=== PATIENT | male | born 1930 | race Caucasian/White ===

== ENCOUNTER 2018-03-03 11:02 | Inpatient (IN) | payer MEDICARE, OTHER ==
[~2018-03-03] VITALS: Ht 172.7 cm; Wt 60.4 kg
[2018-03-03 11:31] LABS: BASOPHILS # (AUTO) 0.1 K/uL (0.0-8.0); BASOPHILS % (AUTO) 0.8 % (0.0-2.0); EOSINOPHILS # (AUTO) 0.5 K/uL (0.0-0.7); EOSINOPHILS % (AUTO) 7.4 % (0.0-7.0); HEMATOCRIT 31.3 % (36.7-47.1); LYMPHOCYTES # (AUTO) 0.9 K/uL (20.0-40.0); LYMPHOCYTES % (AUTO) 12.8 % (20.5-51.5); MEAN CORPUSCULAR HGB CONC 35 g/dL (32.5-36.3); MEAN CORPUSCULAR VOLUME 96.3 fL (73.0-96.2); MONOCYTES # (AUTO) 0.6 K/uL (2.0-10.0); MONOCYTES % (AUTO) 7.8 % (0.0-11.0); NEUTROPHILS # (AUTO) 5.1 K/uL (1.8-8.9); NEUTROPHILS % (AUTO) 71.2 % (38.5-71.5); PLATELET COUNT (AUTO) 189 K/uL (152-348); RED BLOOD CELL COUNT(AUTO) 3.25 MIL/uL (4.06-5.63); WHITE BLOOD COUNT (AUTO) 7.2 K/uL (3.6-10.2)
[2018-03-03 11:41] LABS: CARBON DIOXIDE 23 mmol/L (21-32); CHLORIDE 106 mmol/L (98-107); CREATININE 1.9 mg/dL (0.6-1.3); GLUCOSE 93 mg/dL (74-106); POTASSIUM 5.2 mmol/L (3.5-5.1); UREA NITROGEN, BLOOD 47 mg/dL (7-18)
[2018-03-03] MEDS ORDERED: ACET-2605 PO (11:48)
[2018-03-03] MEDS ORDERED: ATOR40TA PO (11:48)
[2018-03-03] MEDS ORDERED: ZINC220C8 PO (11:48)
[2018-03-03] MEDS ORDERED: MULT1TAB73 PO (11:48)
[2018-03-03] MEDS ORDERED: ASPI81TA31 PO (11:48)
[2018-03-03] MEDS ORDERED: DABI75CA3 PO (11:48)
[2018-03-03] MEDS ORDERED: LISI-603 PO (11:48)
[2018-03-03] MEDS ORDERED: AMLO10TA7 PO (11:48)
[2018-03-03] MEDS ORDERED: HYDR-4075 PO (11:48)
[2018-03-03] MEDS ORDERED: ASCO500C18 PO (11:48)
[2018-03-03] MEDS ORDERED: DOCU-141 PO (11:48)
[2018-03-03 11:54] LABS: ALANINE AMINOTRANSFERASE 25 U/L (16-63); ALKALINE PHOSPHATASE 62 U/L (50-136); ASPARTATE AMINOTRANSFERASE 25 U/L (15-37); BILIRUBIN,DIRECT 0.1 mg/dL (0.0-0.2); BILIRUBIN,TOTAL 0.6 mg/dL (0.2-1.0); TOTAL PROTEIN, SERUM 7.3 g/dL (6.4-8.2)
--- NOTE | 2018-03-03 14:50 | NUR ---
Pt trans to tele floor, NAD noted.
--- NOTE | 2018-03-03 15:00 | NUR ---
PT ARRIVED TO UNIT VIA GURNEY. PT ON THE TELE MONITOR IS SINUS RHYTHM BRADYCARDIA. PT IS AOX3, NON AMBULATORY, WEARS A DIAPER, LEFT ARM CONTRACTED AND IS EXPERIENCING WEAKNESS ON THE LEFT UPPER AND LOWER EXTREMITIES. PT SHOWS NO SIGNS OF RESPIRATORY DISTRESS AT THIS TIME. CONTINUE TO MONITOR PT.
[2018-03-03 15:20] VITALS: BP 100/60
[2018-03-03] MEDS ORDERED: DOCUSATE SODIUM 100 MG CAPSULE PO PRN (17:00)
[2018-03-03] MEDS ORDERED: ONDANSETRON 4 MG/2 ML VIAL IV PRN (17:15)
[2018-03-03] MEDS ORDERED: ACETAMINOPHEN 325 MG TABLET PO PRN (17:15)
[2018-03-03] MEDS ORDERED: TEMAZEPAM 15 MG CAPSULE PO PRN (17:15)
[2018-03-03] MEDS ORDERED: MORPHINE SULFATE 2 MG/1 ML DISP.SYRIN IV PRN (17:15)
[2018-03-03] MEDS ORDERED: MORPHINE SULFATE 4 MG/1 ML DISP.SYRIN IV PRN (17:30)
[2018-03-03] MEDS ORDERED: TEMAZEPAM 7.5 MG CAPSULE PO PRN (17:30)
[2018-03-03] MEDS ORDERED: DOCUSATE SODIUM 250 MG CAPSULE PO PRN (17:30)
--- NOTE | 2018-03-03 18:55 | NUR ---
PT CALM, RESTING IN BED, ATE ALL OF HIS DINNER. PT HAS NO DENTURES, BUT CAN EAT WITHOUT TROUBLE. PT CAN SWALLOW WITH OUT DIFFICULTY, NO SIGNS OF RESPIRATORY DISTRESS, DENIES PAIN. CONTINUE TO MONITOR PT.
--- NOTE | 2018-03-03 19:30 | NUR ---
RECEIVED PATIENT SLEEPING IN BED. IN NO ACUTE DISTRESS. HEPLOCK ON THE RIGHT FA INTACT. SAFETY MEASURES INITIATED. BED IS IN A LOW AND LOCKED POSITION. CALL LIGHT WITHIN REACH. WILL CONTINUE TO MONITOR.
--- NOTE | 2018-03-03 20:00 | NUR ---
Awake alert & oriented no SOB denies chest pain. Bilateral lower ext weakness noted. Repositioned in bed, fall precaution observed. Kept call light within reach w/ bed alarm on.
[2018-03-03 20:15] VITALS: BP 139/63
[2018-03-03] MEDS: ATORVASTATIN 40 MG TABLET PO SCH (20:28)
[2018-03-03 23:53] LABS: *BILIRUBIN,URIN NEGATIVE (NEGATIVE); *BLOOD, URINE NEGATIVE (NEGATIVE); *CLARITY,URINE CLEAR (CLEAR); *COLOR,URINE YELLOW (YELLOW); *KETONES,URINE NEGATIVE (NEGATIVE); *UROBILINOGEN,URINE 0.2 E.U./dl (NORMAL); LEUKOCYTE ESTERASE ,URINE NEGATIVE (NEGATIVE); NITRITE, URINE NEGATIVE (NEGATIVE); PH,URINE 5.5 (5.0-8.0); UGLUCOSE NEGATIVE (NEGATIVE)
--- NOTE | 2018-03-03 23:55 | NUR ---
Urine specimen sent to the lab. for UA C&S.
[2018-03-04] VITALS: BP 124/73
[2018-03-04 00:31] LABS: BACTERIA,URINE NONE SEEN /HPF (NONE SEEN); SQUAMOUS EPITHELIAL CELL,UR FEW /HPF (NONE SEEN); WBC,URINE 0-3 /HPF (0-3)
[2018-03-04 00:32] LABS: MUCUS,URINE FEW /LPF (0-FEW)
[2018-03-04 04:09] VITALS: BP 118/73
--- NOTE | 2018-03-04 05:00 | NUR ---
Patient refused morning blood works. Tele A-fib [phone] HR.
[2018-03-04] MEDS: PANTOPRAZOLE SODIUM 40 MG TABLET.DR PO SCH (06:14)
--- NOTE | 2018-03-04 06:47 | NUR ---
PATIENT SLEPT WELL. HAD NO COMPLAINTS OF SOB OR PAIN. NO SIGNS OF ACUTE DISTRESS. MEDICATIONS GIVEN ORDERED AND TOLERATED WELL. HEPLOCK ON THE RIGHT FA IS INTACT. SAFETY MEASURES GIVEN
--- NOTE | 2018-03-04 07:30 | NUR ---
RECEIVED PATIENT IN BED SLEEPING BUT EASILY AROUSABLE. NO DISTRESS NOTED. BED IN LOW POSITION, CALL LIGHT WITHIN REACH. WILL CONTINUE TO MONITOR.
--- NOTE | 2018-03-04 08:00 | NUR ---
PATIENT ON TELE AFIB IKE 50'S. PATIENT RESTING IN BED, IN NO DISTRESS.
--- NOTE | 2018-03-04 08:45 | NUR ---
PATIENT REFUSING LAB DRAW. PATIENT EDUCATION PROVIDED BUT PATIENT STILL REFUSED AND STATED "I DON'T CARE, NO MORE NEEDLES". SON ACOSTA WILL STOP BY AT NOON TO TRY TO CONVINCE HIS FATHER TO AGREE WITH GETTING HIS LAB WORK DONE.
[2018-03-04] MEDS: ZINC SULFATE 220 MG CAPSULE PO SCH (08:56)
[2018-03-04] MEDS: MULTIVITAMINS,THERAPEUTIC TABLET PO SCH (08:56)
[2018-03-04] MEDS: ASCORBIC ACID 500 MG TABLET PO SCH (08:56)
[2018-03-04] MEDS ORDERED: Medication Not On Formulary EA (Multivitamins (Multivitamin) 1 EACH) PO SCH (09:00)
[2018-03-04] MEDS ORDERED: Medication Not On Formulary EA (Ascorbic Acid (Vitamin C) 500 MG) PO SCH (09:00)
[2018-03-04] MEDS ORDERED: ASPIRIN 81 MG TAB.CHEW PO SCH (09:00)
[2018-03-04 11:26] VITALS: BP 113/47
[2018-03-04 13:31] LABS: BASOPHILS # (AUTO) 0.1 K/uL (0.0-8.0); BASOPHILS % (AUTO) 0.9 % (0.0-2.0); EOSINOPHILS # (AUTO) 0.5 K/uL (0.0-0.7); EOSINOPHILS % (AUTO) 7.5 % (0.0-7.0); HEMATOCRIT 31.6 % (36.7-47.1); HEMOGLOBIN 11.1 g/dL (12.5-16.3); LYMPHOCYTES # (AUTO) 0.9 K/uL (20.0-40.0); LYMPHOCYTES % (AUTO) 14.3 % (20.5-51.5); MEAN CORPUSCULAR HEMOGLOBIN 33.7 uug (23.8-33.4); MEAN CORPUSCULAR HGB CONC 35 g/dL (32.5-36.3); MEAN CORPUSCULAR VOLUME 95.7 fL (73.0-96.2); MONOCYTES # (AUTO) 0.5 K/uL (2.0-10.0); MONOCYTES % (AUTO) 7.6 % (0.0-11.0); NEUTROPHILS # (AUTO) 4.2 K/uL (1.8-8.9); NEUTROPHILS % (AUTO) 69.7 % (38.5-71.5); PLATELET COUNT (AUTO) 203 K/uL (152-348)
[2018-03-04 13:50] LABS: THYROID STIMULATING HORMONE 3.504 mIU/mL (0.358-3.740)
[2018-03-04 13:59] LABS: IRON, SERUM 50 ug/dL (50-175)
[2018-03-04 14:06] LABS: ALANINE AMINOTRANSFERASE 23 U/L (16-63); ALKALINE PHOSPHATASE 61 U/L (50-136); ASPARTATE AMINOTRANSFERASE 23 U/L (15-37); BILIRUBIN,TOTAL 0.6 mg/dL (0.2-1.0); CARBON DIOXIDE 24 mmol/L (21-32); CHLORIDE 104 mmol/L (98-107); CHOLESTEROL 140 mg/dL (<200); CREATININE 1.9 mg/dL (0.6-1.3); GLUCOSE 128 mg/dL (74-106); HDL CHOLESTEROL 56 mg/dL (40-60); MAGNESIUM 1.8 mg/dL (1.8-2.4); PHOSPHOROUS 3.4 mg/dL (2.5-4.9); POTASSIUM 5.5 mmol/L (3.5-5.1); TOTAL PROTEIN, SERUM 7.1 g/dL (6.4-8.2); TRIGLYCERIDES 120 MG/DL (30-150); UREA NITROGEN, BLOOD 44 mg/dL (7-18)
[2018-03-04 14:25] VITALS: BP 85/46
[2018-03-04] MEDS ORDERED: SODIUM POLYSTYRENE SULFONATE 15 G/60 ML LIQUID UDC PO ONE (15:00)
--- NOTE | 2018-03-04 15:16 | NUR ---
INFORMED PHARMACY ABOUT PRADAXA MEDICATION, FAMILY WAS SUPPOSED TO BRING IT TODAY 03/04/18 BUT THEY ARE UNABLE TO SO THEY WILL BRING IT TOMORROW MORNING 03/05/18.
[2018-03-04 15:20] VITALS: BP 110/70
--- NOTE | 2018-03-04 18:18 | NUR ---
PATIENT IS SLEEPING, BUT EASILY AROUSABLE. NO SIGNS OF DISTRESS NOTED. BED IN LOW POSITION, CALL LIGHT WITHIN REACH. FAMILY IS TO BRING MEDICATION (PRADAXA) 03/05/18 MORNING.
[2018-03-04] MEDS ORDERED: DABIGATRAN ETEXILATE MESYLATE 75 MG CAPSULE PO ONE (18:30)
--- NOTE | 2018-03-04 19:53 | NUR ---
PATIENT AWAKE ON BED, NO C/O OF ANY DISCOMFORT. REPOSITIONED THE BED PER REQUEST. CALL LIGHT IN REACH. WILL CONTINUE TO MONITOR
[2018-03-04 20:08] VITALS: BP 132/69
[2018-03-04] MEDS: ATORVASTATIN 40 MG TABLET PO SCH (20:39)
[2018-03-05 04:38] VITALS: BP 140/83
[2018-03-05] MEDS: PANTOPRAZOLE SODIUM 40 MG TABLET.DR PO SCH (06:12)
--- NOTE | 2018-03-05 06:45 | NUR ---
PATIENT INTERMITTENTLY SLEEPING, EASILY AWAKE WITH VERBAL RESPONSE. NO C/O PAIN OR ANY DISCOMFORT. KEPT CLEAN AND DRY.WILL CONTINUE TO MONITOR
--- NOTE | 2018-03-05 07:30 | NUR ---
on bed, sleeping comfortably. no distress noted.
[2018-03-05] MEDS: ASCORBIC ACID 500 MG TABLET PO SCH (08:53)
[2018-03-05] MEDS: MULTIVITAMINS,THERAPEUTIC TABLET PO SCH (08:53)
[2018-03-05] MEDS: ZINC SULFATE 220 MG CAPSULE PO SCH (08:53)
[2018-03-05 09:10] LABS: BASOPHILS # (AUTO) 0.1 K/uL (0.0-8.0); BASOPHILS % (AUTO) 0.9 % (0.0-2.0); EOSINOPHILS # (AUTO) 0.5 K/uL (0.0-0.7); EOSINOPHILS % (AUTO) 7.2 % (0.0-7.0); HEMATOCRIT 32.9 % (36.7-47.1); HEMOGLOBIN 11.4 g/dL (12.5-16.3); LYMPHOCYTES % (AUTO) 15.3 % (20.5-51.5); MEAN CORPUSCULAR HEMOGLOBIN 33.5 uug (23.8-33.4); MEAN CORPUSCULAR HGB CONC 35 g/dL (32.5-36.3); MEAN CORPUSCULAR VOLUME 96.5 fL (73.0-96.2); MONOCYTES # (AUTO) 0.5 K/uL (2.0-10.0); MONOCYTES % (AUTO) 7.4 % (0.0-11.0); NEUTROPHILS # (AUTO) 4.4 K/uL (1.8-8.9); NEUTROPHILS % (AUTO) 69.2 % (38.5-71.5); PLATELET COUNT (AUTO) 200 K/uL (152-348); RED BLOOD CELL COUNT(AUTO) 3.41 MIL/uL (4.06-5.63); WHITE BLOOD COUNT (AUTO) 6.4 K/uL (3.6-10.2)
[2018-03-05 09:16] LABS: ALANINE AMINOTRANSFERASE 23 U/L (16-63); ALKALINE PHOSPHATASE 58 U/L (50-136); ASPARTATE AMINOTRANSFERASE 23 U/L (15-37); BILIRUBIN,TOTAL 0.6 mg/dL (0.2-1.0); CARBON DIOXIDE 22 mmol/L (21-32); CHLORIDE 104 mmol/L (98-107); CREATININE 1.9 mg/dL (0.6-1.3); GLUCOSE 116 mg/dL (74-106); MAGNESIUM 1.8 mg/dL (1.8-2.4); PHOSPHOROUS 3.2 mg/dL (2.5-4.9); POTASSIUM 4.8 mmol/L (3.5-5.1); TOTAL PROTEIN, SERUM 7.1 g/dL (6.4-8.2); UREA NITROGEN, BLOOD 42 mg/dL (7-18)
--- NOTE | 2018-03-05 11:00 | NUR ---
son and daughter at bedside, supportive and appreciative of care. patient resting well. taking fluids well.
[2018-03-05] MEDS: DABIGATRAN 75 MG PO SCH ×2 (11:54→20:46)
[2018-03-05 12:15] VITALS: BP 120/69
--- NOTE | 2018-03-05 15:26 | NUR ---
resting well, denies distress
[2018-03-05 16:17] VITALS: BP 114/61
--- NOTE | 2018-03-05 16:30 | NUR ---
awake, denies pain. fluids given, sent urine to lab as ordered
[2018-03-05 17:39] LABS: *BILIRUBIN,URIN NEGATIVE (NEGATIVE); *BLOOD, URINE NEGATIVE (NEGATIVE); *CLARITY,URINE SLIGHTLY CLOUDY (CLEAR); *COLOR,URINE YELLOW (YELLOW); *KETONES,URINE NEGATIVE (NEGATIVE); *UROBILINOGEN,URINE 0.2 E.U./dl (NORMAL); LEUKOCYTE ESTERASE ,URINE NEGATIVE (NEGATIVE); NITRITE, URINE NEGATIVE (NEGATIVE); UGLUCOSE NEGATIVE (NEGATIVE)
[2018-03-05 17:50] LABS: *CREATININE,URINE 81.2 mg/dL (30-125); *URINE TOTAL PROTEIN RANDOM 13.3 mg/dL (<150/24HR)
--- NOTE | 2018-03-05 19:30 | NUR ---
comfortably, denies distress . cooperative and appreciative for the shift
--- NOTE | 2018-03-05 19:54 | NUR ---
RECEIVED PATIENT IN BED ALERT ORIENTED, NO SOB NO CHEST PAIN, NO COMPLAIN OF PAIN AT THIS TIME. CALL LIGHT WITHIN REACH.
[2018-03-05 20:01] VITALS: BP 113/58
[2018-03-05] MEDS: ATORVASTATIN 40 MG TABLET PO SCH (20:44)
[2018-03-06 05:29] VITALS: BP 127/89
--- NOTE | 2018-03-06 05:39 | NUR ---
PATIENT SLEPT MOST OF THE NIGHT, NO SOB NO CHEST PAIN. NO COMPLAIN OF PAIN, KEPT CLEAN AND DRY, REMIND PATIENT TO TURN AND REPOSITION EVERY TWO HOURS, CALL LIGHT WITHIN REACH.
[2018-03-06] MEDS: PANTOPRAZOLE SODIUM 40 MG TABLET.DR PO SCH (06:03)
--- NOTE | 2018-03-06 07:40 | NUR ---
BEGINNING OF SHIFT RECEIVED PATIENT IN BED SLEEPING, NO SOB NO DISTRESS AT THE MOMEN. CALL LIGHT WITHIN REACH.
[2018-03-06] MEDS: MULTIVITAMINS,THERAPEUTIC TABLET PO SCH (09:04)
[2018-03-06] MEDS: ASCORBIC ACID 500 MG TABLET PO SCH (09:04)
[2018-03-06] MEDS: ZINC SULFATE 220 MG CAPSULE PO SCH (09:04)
[2018-03-06] MEDS: DABIGATRAN 75 MG PO SCH ×2 (09:06→20:14)
[2018-03-06 11:55] VITALS: BP 95/44
[2018-03-06] MEDS ORDERED: FUROSEMIDE 20 MG/2 ML VIAL IV ONE (14:00)
[2018-03-06] MEDS: CYANOCOBALAMIN 1000 MCG/ML VIAL IM SCH (15:24)
[2018-03-06 15:27] VITALS: BP 143/64
[2018-03-06 16:20] VITALS: BP 122/58
--- NOTE | 2018-03-06 19:22 | NUR ---
patient a/o 3, no distress, comfortably, denies distress . appreciative for the shift
--- NOTE | 2018-03-06 19:25 | NUR ---
RECEIVED PT AWAKE, ALERT AND ORIENTEDX3. PT SHOWS NO SIGNS OF ACUTE DISTRESS. PT IV INTACT AND PATENT. CALL LIGHT WITHIN REACH. SAFETY AND COMFORT PROVIDED.WILL CONTINUE TO MONITOR.
[2018-03-06 20:08] VITALS: BP 125/64
[2018-03-06] MEDS ORDERED: ATORVASTATIN 20 MG TABLET PO SCH (21:00)
[2018-03-07 05:48] VITALS: BP 122/69
[2018-03-07] MEDS: PANTOPRAZOLE SODIUM 40 MG TABLET.DR PO SCH (06:02)
--- NOTE | 2018-03-07 06:04 | NUR ---
PT SLEPT THROUGHOUT THE SHIFT. PT SHOWS NO SIGNS OF ACUTE DISTRESS. PT IV INTACT. PRESCRIBED MEDICATION GIVEN AND PT TOLERATED IT WELL.PT HAD ONE BOWEL MOVEMENT. SAFETY AND COMFORT PROVIDED. ALL NEEDS ARE MET. WILL ENDORSE ACCORDINGLY TO INCOMING NURSE FOR CONTINUITY OF CARE.
--- NOTE | 2018-03-07 07:30 | NUR ---
ASLEEP EASILY AROUSABLE ON ROUNDS DENIES PAIN OR DISCOMFORTS GENERALISED WEAKNESS WITH LEFT SIDE HEMIPARESIS ASSISTED WITH NEEDS AND MADE COMFORTABLE.
[2018-03-07] MEDS: ASCORBIC ACID 500 MG TABLET PO SCH (08:19)
[2018-03-07] MEDS: ZINC SULFATE 220 MG CAPSULE PO SCH (08:19)
[2018-03-07] MEDS: MULTIVITAMINS,THERAPEUTIC TABLET PO SCH (08:19)
[2018-03-07] MEDS: CYANOCOBALAMIN 1000 MCG/ML VIAL IM SCH (08:19)
[2018-03-07] MEDS: DABIGATRAN 75 MG PO SCH (08:21)
--- NOTE | 2018-03-07 09:06 | NUR ---
PATIENT SEEN AND EXAMINED BY DR BENEDICT WITH NEW ORDERS AND NOTED.
[2018-03-07 10:19] LABS: LYMPHOCYTES % (AUTO) 14.8 % (20.5-51.5); MONOCYTES # (AUTO) 0.5 K/uL (2.0-10.0); PLATELET COUNT (AUTO) 201 K/uL (152-348)
[2018-03-07 10:28] LABS: ALANINE AMINOTRANSFERASE 22 U/L (16-63); ALKALINE PHOSPHATASE 62 U/L (50-136); ASPARTATE AMINOTRANSFERASE 18 U/L (15-37); BASOPHILS # (AUTO) 0.1 K/uL (0.0-8.0); BASOPHILS % (AUTO) 0.9 % (0.0-2.0); BILIRUBIN,TOTAL 0.5 mg/dL (0.2-1.0); CARBON DIOXIDE 26 mmol/L (21-32); CHLORIDE 100 mmol/L (98-107); CREATININE 2.2 mg/dL (0.6-1.3); EOSINOPHILS # (AUTO) 0.5 K/uL (0.0-0.7); EOSINOPHILS % (AUTO) 7.1 % (0.0-7.0); GLUCOSE 111 mg/dL (74-106); HEMATOCRIT 32.7 % (36.7-47.1); HEMOGLOBIN 11.3 g/dL (12.5-16.3); MAGNESIUM 1.8 mg/dL (1.8-2.4); MEAN CORPUSCULAR HEMOGLOBIN 33.5 uug (23.8-33.4); MEAN CORPUSCULAR HGB CONC 35 g/dL (32.5-36.3); MEAN CORPUSCULAR VOLUME 96.3 fL (73.0-96.2); MONOCYTES % (AUTO) 6.9 % (0.0-11.0); NEUTROPHILS # (AUTO) 4.8 K/uL (1.8-8.9); NEUTROPHILS % (AUTO) 70.3 % (38.5-71.5); PHOSPHOROUS 3.1 mg/dL (2.5-4.9); POTASSIUM 3.8 mmol/L (3.5-5.1); RED BLOOD CELL COUNT(AUTO) 3.39 MIL/uL (4.06-5.63); TOTAL PROTEIN, SERUM 7.1 g/dL (6.4-8.2); UREA NITROGEN, BLOOD 49 mg/dL (7-18); WHITE BLOOD COUNT (AUTO) 6.9 K/uL (3.6-10.2)
--- NOTE | 2018-03-07 10:56 | NUR ---
PER THE BULK STATION AGENT/LABEL REWINDER PATIENT WILL BE DISCHARGE TO THE [facility] TODAY AWAITING FOR ORDERS.
[2018-03-07 11:10] VITALS: BP 107/51
[2018-03-07] MEDS ORDERED: DOCU250C14 PO (13:47)
[2018-03-07] MEDS ORDERED: FOLI0.8T2 PO (13:47)
[2018-03-07] MEDS ORDERED: CYAN10006 IM (13:47)
[2018-03-07] MEDS ORDERED: DABI75CA3 PO (13:47)
[2018-03-07] MEDS ORDERED: ACET325T53 PO (13:47)
[2018-03-07] MEDS ORDERED: ATOR20TA PO (13:47)
[2018-03-07] MEDS ORDERED: TEMA7.5C PO (13:48)
[2018-03-07] MEDS ORDERED: PANT40TA2 PO (13:48)
--- NOTE | 2018-03-07 14:45 | NUR ---
CALLED [facility] AND REPORT GIVEN TO EMIL FOR CONTINUING CARE. AMBULANCE WILL OFFICE SYSTEM ANALYST AT 1500
--- NOTE | 2018-03-07 15:15 | NUR ---
PATIENT DISCHARGED PICKED UP BY THE AMBULANCE IN SATISFACTORY CONDITION WITH DISCHARGE INSTRUCTIONS AND ALL HIS PERSONAL BELONGINGS.
== END 2018-03-07 15:20 | DRG 682 ==
LOC: ER 11:02 → TELE 14:38 → MED 03-04 19:28
PROVIDERS: ADMIT Internal Medicine; ATTEND Internal Medicine
DX: N17.0 Acute kidney failure with tubular necrosis (principal); I50.31 Acute diastolic (congestive) heart failure; I13.0 Hypertensive heart and chronic kidney disease with heart failure and stage 1 through stage 4 chronic kidney disease, or unspecified chronic kidney disease; D68.59 Other primary thrombophilia; I69.354 Hemiplegia and hemiparesis following cerebral infarction affecting left non-dominant side; N18.3 Chronic kidney disease, stage 3 (moderate); D53.9 Nutritional anemia, unspecified; I48.2 Chronic atrial fibrillation; M48.00 Spinal stenosis, site unspecified; Z74.09 Other reduced mobility; E78.5 Hyperlipidemia, unspecified; E87.5 Hyperkalemia; E03.9 Hypothyroidism, unspecified; R53.1 Weakness; Z79.899 Other long term (current) drug therapy; Z79.01 Long term (current) use of anticoagulants; Z79.82 Long term (current) use of aspirin; I25.10 Atherosclerotic heart disease of native coronary artery without angina pectoris; Z79.02 Long term (current) use of antithrombotics/antiplatelets; Z87.891 Personal history of nicotine dependence; N27.0 Small kidney, unilateral; I25.2 Old myocardial infarction; Z87.898 Personal history of other specified conditions; Z90.49 Acquired absence of other specified parts of digestive tract; Z98.42 Cataract extraction status, left eye; Z98.41 Cataract extraction status, right eye; I08.3 Combined rheumatic disorders of mitral, aortic and tricuspid valves; T46.4X5A Adverse effect of angiotensin-converting-enzyme inhibitors, initial encounter
CPT/HCPCS: 36415; 70030-TC; 70450; 71045; 76770; 83550; 83605; 83735; 84100; 84156; 84300; 84443; 85025; 85730; 87040; 87086; 93005; 93307; 97116; 97530; A4663; G0378; J1940; J3420

== ENCOUNTER 2018-10-21 18:08 | Inpatient (IN) | payer MEDICARE, OTHER ==
[~2018-10-21] VITALS: Ht 175.3 cm; Wt 62.1 kg
[~2018-10-21 18:08] MED LIST: ACET325T53 PO; AMLO10TA7 PO; ATOR20TA PO; CYAN10006 IM; DABI75CA3 PO; DOCU250C14 PO; FOLI0.8T2 PO; PANT40TA2 PO; TEMA7.5C PO
[2018-10-21] MEDS ORDERED: VALS160T2 PO (18:19)
[2018-10-21] MEDS ORDERED: FERR325T28 PO (18:19)
[2018-10-21 18:48] LABS: BASOPHILS # (AUTO) 0.1 K/uL (0.0-8.0); BASOPHILS % (AUTO) 1.2 % (0.0-2.0); EOSINOPHILS # (AUTO) 0.5 K/uL (0.0-0.7); EOSINOPHILS % (AUTO) 8.5 % (0.0-7.0); HEMOGLOBIN 12.4 g/dL (12.5-16.3); LYMPHOCYTES # (AUTO) 0.9 K/uL (20.0-40.0); LYMPHOCYTES % (AUTO) 14.9 % (20.5-51.5); MEAN CORPUSCULAR HEMOGLOBIN 30.4 uug (23.8-33.4); MEAN CORPUSCULAR HGB CONC 33 g/dL (32.5-36.3); MEAN CORPUSCULAR VOLUME 93.4 fL (73.0-96.2); MONOCYTES # (AUTO) 0.5 K/uL (2.0-10.0); MONOCYTES % (AUTO) 8.7 % (0.0-11.0); NEUTROPHILS # (AUTO) 4.2 K/uL (1.8-8.9); NEUTROPHILS % (AUTO) 66.7 % (38.5-71.5); PLATELET COUNT (AUTO) 194 K/uL (152-348); RED BLOOD CELL COUNT(AUTO) 4.07 MIL/uL (4.06-5.63); WHITE BLOOD COUNT (AUTO) 6.3 K/uL (3.6-10.2)
[2018-10-21 18:57] LABS: CARBON DIOXIDE 24 mmol/L (21-32); CHLORIDE 107 mmol/L (98-107); GLUCOSE 98 mg/dL (74-106); POTASSIUM 4.9 mmol/L (3.5-5.1); UREA NITROGEN, BLOOD 39 mg/dL (7-18)
[2018-10-21 19:02] LABS: ALANINE AMINOTRANSFERASE 17 U/L (16-63); ALKALINE PHOSPHATASE 74 U/L (50-136); ASPARTATE AMINOTRANSFERASE 16 U/L (15-37); BILIRUBIN,DIRECT 0.1 mg/dL (0.0-0.2); BILIRUBIN,TOTAL 0.6 mg/dL (0.2-1.0); TOTAL PROTEIN, SERUM 7.8 g/dL (6.4-8.2)
--- NOTE | 2018-10-21 19:08 | NUR ---
Patient is back from CT scan, still for blood results & urine specimen, endorsed ro JULIANE Horn
[2018-10-21 19:11] LABS: THYROID STIMULATING HORMONE 5.301 mIU/mL (0.358-3.740)
--- NOTE | 2018-10-21 19:22 | NUR ---
Pt is pending urine at this time, urinal in place. Pt aware of plan of care.
[2018-10-21] MEDS ORDERED: IV NORMAL SALINE 500 ML BAG IV ONE (19:30)
--- NOTE | 2018-10-21 19:30 | NUR ---
Pt is A/O x 4 and states he is unable to provide urine at this time. Pt refusing to have in/out catheter to collect urine, ER aware.
--- NOTE | 2018-10-21 19:34 | NUR ---
EPIC paged for panel call.
[2018-10-21] MEDS ORDERED: HYDROCODONE/APAP 5-325MG TABLET PO PRN (19:45)
[2018-10-21] MEDS ORDERED: DOCUSATE SODIUM 250 MG CAPSULE PO PRN (19:45)
[2018-10-21] MEDS ORDERED: ACETAMINOPHEN 325 MG TABLET PO PRN ×2 (19:45)
[2018-10-21] MEDS ORDERED: MAGNESIUM HYDROXIDE 30 ML LIQUID UDC PO PRN (19:45)
[2018-10-21] MEDS ORDERED: ONDANSETRON 4 MG/2 ML VIAL IV PRN (19:45)
[2018-10-21] MEDS ORDERED: Z GUARD REMEDY PASTE 57 GM TUBE TOP PRN (19:45)
[2018-10-21] MEDS ORDERED: ASPIRIN 81 MG TAB.CHEW ONE (20:15)
[2018-10-21] MEDS ORDERED: ASPIRIN 81 MG TAB.CHEW PO ONE (20:15)
--- NOTE | 2018-10-21 20:15 | NUR ---
Pt still pending urine at this time and endorsed to receiving inpatient RN to collect.
--- NOTE | 2018-10-21 20:30 | NUR ---
Pt. admitted to Telemetry , under care of Dr. Britton Belongs List completed
[2018-10-21] MEDS: DABIGATRAN ETEXILATE MESYLATE 75 MG CAPSULE PO SCH (21:00)
[2018-10-21] MEDS: ATORVASTATIN 20 MG TABLET PO SCH (21:11)
[2018-10-21] MEDS: VALSARTAN 160 MG TABLET PO SCH (21:11)
[2018-10-21 21:15] VITALS: BP 158/83
--- NOTE | 2018-10-21 21:41 | NUR ---
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 No slurred speech, tongue is midline, face is symmetric. Will continue to monitor.
[2018-10-21] MEDS: IV 1/2NS 1000 ML 1,000 ML IV PRN (21:49)
[2018-10-22 00:28] VITALS: BP 168/75
[2018-10-22 05:05] VITALS: BP 123/71
[2018-10-22 05:06] LABS: *BILIRUBIN,URIN NEGATIVE (NEGATIVE); *CLARITY,URINE CLEAR (CLEAR); *COLOR,URINE YELLOW (YELLOW); *KETONES,URINE NEGATIVE (NEGATIVE); *UROBILINOGEN,URINE 0.2 E.U./dl (NORMAL); LEUKOCYTE ESTERASE ,URINE NEGATIVE (NEGATIVE); NITRITE, URINE NEGATIVE (NEGATIVE); PH,URINE 5.5 (5.0-8.0); UGLUCOSE NEGATIVE (NEGATIVE)
[2018-10-22 05:12] LABS: *BLOOD, URINE TRACE (NEGATIVE)
[2018-10-22 05:19] LABS: BACTERIA,URINE NONE SEEN /HPF (NONE SEEN); SQUAMOUS EPITHELIAL CELL,UR FEW /HPF (NONE SEEN); WBC,URINE 0-3 /HPF (0-3)
[2018-10-22] MEDS: PANTOPRAZOLE SODIUM 40 MG TABLET.DR PO SCH (06:26)
[2018-10-22 07:09] LABS: BASOPHILS # (AUTO) 0.1 K/uL (0.0-8.0); EOSINOPHILS # (AUTO) 0.5 K/uL (0.0-0.7); EOSINOPHILS % (AUTO) 9.3 % (0.0-7.0); HEMATOCRIT 35.9 % (36.7-47.1); HEMOGLOBIN 12.2 g/dL (12.5-16.3); LYMPHOCYTES % (AUTO) 17.6 % (20.5-51.5); MEAN CORPUSCULAR HEMOGLOBIN 31.7 uug (23.8-33.4); MEAN CORPUSCULAR HGB CONC 34 g/dL (32.5-36.3); MEAN CORPUSCULAR VOLUME 93.1 fL (73.0-96.2); MONOCYTES # (AUTO) 0.5 K/uL (2.0-10.0); MONOCYTES % (AUTO) 8.4 % (0.0-11.0); NEUTROPHILS # (AUTO) 3.7 K/uL (1.8-8.9); NEUTROPHILS % (AUTO) 63.7 % (38.5-71.5); PLATELET COUNT (AUTO) 176 K/uL (152-348); RED BLOOD CELL COUNT(AUTO) 3.85 MIL/uL (4.06-5.63); WHITE BLOOD COUNT (AUTO) 5.8 K/uL (3.6-10.2)
[2018-10-22 07:30] LABS: THYROID STIMULATING HORMONE 5.402 mIU/mL (0.358-3.740)
--- NOTE | 2018-10-22 07:44 | NUR ---
Dr Jones is with a patient, does not see new weaknesses on the left side. Reviewed history, and the deficits are from the previous CVA. Report given to JULIANE Black
[2018-10-22 07:59] LABS: CARBON DIOXIDE 22 mmol/L (21-32); CHLORIDE 106 mmol/L (98-107); CHOLESTEROL 154 mg/dL (<200); CREATININE 1.7 mg/dL (0.6-1.3); GLUCOSE 85 mg/dL (74-106); HDL CHOLESTEROL 48 mg/dL (40-60); MAGNESIUM 1.9 mg/dL (1.8-2.4); PHOSPHOROUS 3.2 mg/dL (2.5-4.9); POTASSIUM 4.2 mmol/L (3.5-5.1); TRIGLYCERIDES 92 MG/DL (30-150); UREA NITROGEN, BLOOD 36 mg/dL (7-18)
[2018-10-22] MEDS: DABIGATRAN ETEXILATE MESYLATE 75 MG CAPSULE PO SCH (09:00)
[2018-10-22] MEDS: ASPIRIN EC 81 MG TABLET.DR PO SCH (09:54)
[2018-10-22] MEDS: AMLODIPINE 10 MG TABLET PO SCH (09:54)
[2018-10-22 11:12] VITALS: BP 131/67
[2018-10-22] MEDS: IV 1/2NS 1000 ML 1,000 ML IV PRN (12:53)
[2018-10-22 15:30] VITALS: BP 141/75
[2018-10-22] MEDS ORDERED: DABIGATRAN ETEXILATE MESYLATE 75 MG CAPSULE PO ONE (18:45)
[2018-10-22 20:04] VITALS: BP 164/80
[2018-10-22] MEDS: VALSARTAN 160 MG TABLET PO SCH (20:23)
[2018-10-22] MEDS: ATORVASTATIN 20 MG TABLET PO SCH (20:23)
[2018-10-23 00:45] VITALS: BP 113/49
[2018-10-23 04:55] VITALS: BP 140/66
[2018-10-23] MEDS: IV 1/2NS 1000 ML 1,000 ML IV PRN ×2 (05:26→19:30)
[2018-10-23] MEDS: PANTOPRAZOLE SODIUM 40 MG TABLET.DR PO SCH (06:45)
[2018-10-23 11:06] VITALS: BP 144/64
[2018-10-23] MEDS: ASPIRIN EC 81 MG TABLET.DR PO SCH (11:38)
[2018-10-23] MEDS: AMLODIPINE 10 MG TABLET PO SCH (11:39)
[2018-10-23] MEDS: DABIGATRAN ETEXILATE MESYLATE 75 MG CAPSULE PO SCH ×2 (11:45→21:01)
[2018-10-23 15:02] LABS: BASOPHILS # (AUTO) 0.1 K/uL (0.0-8.0); BASOPHILS % (AUTO) 0.9 % (0.0-2.0); EOSINOPHILS # (AUTO) 0.4 K/uL (0.0-0.7); EOSINOPHILS % (AUTO) 7.6 % (0.0-7.0); HEMATOCRIT 34.3 % (36.7-47.1); HEMOGLOBIN 11.4 g/dL (12.5-16.3); LYMPHOCYTES % (AUTO) 16.7 % (20.5-51.5); MEAN CORPUSCULAR HEMOGLOBIN 30.7 uug (23.8-33.4); MEAN CORPUSCULAR HGB CONC 33 g/dL (32.5-36.3); MEAN CORPUSCULAR VOLUME 92.2 fL (73.0-96.2); MONOCYTES # (AUTO) 0.5 K/uL (2.0-10.0); MONOCYTES % (AUTO) 8.8 % (0.0-11.0); NEUTROPHILS # (AUTO) 3.9 K/uL (1.8-8.9); PLATELET COUNT (AUTO) 168 K/uL (152-348); RED BLOOD CELL COUNT(AUTO) 3.72 MIL/uL (4.06-5.63); WHITE BLOOD COUNT (AUTO) 5.9 K/uL (3.6-10.2)
[2018-10-23 15:09] VITALS: BP 141/65
[2018-10-23 15:13] LABS: ALANINE AMINOTRANSFERASE 15 U/L (16-63); ALKALINE PHOSPHATASE 70 U/L (50-136); ASPARTATE AMINOTRANSFERASE 15 U/L (15-37); BILIRUBIN,TOTAL 0.5 mg/dL (0.2-1.0); CARBON DIOXIDE 23 mmol/L (21-32); CHLORIDE 107 mmol/L (98-107); CREATININE 1.7 mg/dL (0.6-1.3); GLUCOSE 105 mg/dL (74-106); MAGNESIUM 1.8 mg/dL (1.8-2.4); PHOSPHOROUS 3.4 mg/dL (2.5-4.9); POTASSIUM 4.6 mmol/L (3.5-5.1); UREA NITROGEN, BLOOD 34 mg/dL (7-18)
[2018-10-23 20:07] VITALS: BP 158/67
[2018-10-23] MEDS: ATORVASTATIN 20 MG TABLET PO SCH (21:01)
[2018-10-23] MEDS: VALSARTAN 160 MG TABLET PO SCH (21:02)
[2018-10-24 00:44] VITALS: BP 155/69
[2018-10-24 03:34] LABS: *BILIRUBIN,URIN NEGATIVE (NEGATIVE); *CLARITY,URINE CLEAR (CLEAR); *COLOR,URINE YELLOW (YELLOW); *KETONES,URINE NEGATIVE (NEGATIVE); *UROBILINOGEN,URINE 0.2 E.U./dl (NORMAL); LEUKOCYTE ESTERASE ,URINE NEGATIVE (NEGATIVE); NITRITE, URINE NEGATIVE (NEGATIVE); PH,URINE 5.5 (5.0-8.0); UGLUCOSE NEGATIVE (NEGATIVE)
[2018-10-24 03:51] LABS: *BLOOD, URINE TRACE (NEGATIVE)
[2018-10-24 03:59] LABS: BACTERIA,URINE NONE SEEN /HPF (NONE SEEN); RBC,URINE 0-3 /HPF (0-3); SQUAMOUS EPITHELIAL CELL,UR FEW /HPF (NONE SEEN); WBC,URINE 0-3 /HPF (0-3)
--- NOTE | 2018-10-24 03:59 | NUR ---
Pt rested well in between care; no acute distress; safety maintained; condom cath placed for specimen collection; no acute distress; continue to monitor; continue plan of care
[2018-10-24 05:00] VITALS: BP 154/62
[2018-10-24] MEDS: PANTOPRAZOLE SODIUM 40 MG TABLET.DR PO SCH (06:03)
[2018-10-24 06:34] LABS: BASOPHILS % (AUTO) 0.7 % (0.0-2.0); EOSINOPHILS # (AUTO) 0.5 K/uL (0.0-0.7); HEMATOCRIT 35.7 % (36.7-47.1); HEMOGLOBIN 11.8 g/dL (12.5-16.3); LYMPHOCYTES # (AUTO) 1.2 K/uL (20.0-40.0); LYMPHOCYTES % (AUTO) 18.2 % (20.5-51.5); MEAN CORPUSCULAR HEMOGLOBIN 30.7 uug (23.8-33.4); MEAN CORPUSCULAR HGB CONC 33 g/dL (32.5-36.3); MEAN CORPUSCULAR VOLUME 92.8 fL (73.0-96.2); MONOCYTES # (AUTO) 0.6 K/uL (2.0-10.0); MONOCYTES % (AUTO) 8.7 % (0.0-11.0); NEUTROPHILS # (AUTO) 4.3 K/uL (1.8-8.9); NEUTROPHILS % (AUTO) 65.4 % (38.5-71.5); PLATELET COUNT (AUTO) 169 K/uL (152-348); RED BLOOD CELL COUNT(AUTO) 3.85 MIL/uL (4.06-5.63); WHITE BLOOD COUNT (AUTO) 6.5 K/uL (3.6-10.2)
--- NOTE | 2018-10-24 06:39 | NUR ---
PATIENT ALERT BUT FORGETFUL NO SOB NO CHEST PAIN NOTED. PATIENT HAS NO COMPLAIN OFPAIN AT THIS TIME. PATIENT REMAINS ON THE CONDOM CATH, DRAINING WITH YELLOW COLOR URINE IN MODERATE AMOUNT. CONT TO MONITOR.
[2018-10-24 06:50] LABS: ALANINE AMINOTRANSFERASE 14 U/L (16-63); ALKALINE PHOSPHATASE 71 U/L (50-136); ASPARTATE AMINOTRANSFERASE 19 U/L (15-37); BILIRUBIN,TOTAL 0.8 mg/dL (0.2-1.0); CARBON DIOXIDE 25 mmol/L (21-32); CHLORIDE 108 mmol/L (98-107); CREATININE 1.6 mg/dL (0.6-1.3); GLUCOSE 86 mg/dL (74-106); MAGNESIUM 1.8 mg/dL (1.8-2.4); PHOSPHOROUS 3.1 mg/dL (2.5-4.9); POTASSIUM 4.3 mmol/L (3.5-5.1); TOTAL PROTEIN, SERUM 7.3 g/dL (6.4-8.2); UREA NITROGEN, BLOOD 31 mg/dL (7-18)
--- NOTE | 2018-10-24 08:00 | NUR ---
AWAKE ALERT AND VERBALLY RESPONSIVE NO SS OF PAIN OR DISTRESS CONTINUE WITH MEDICAL MANAGEMENT ORDERED.
[2018-10-24] MEDS: ASPIRIN EC 81 MG TABLET.DR PO SCH (08:39)
[2018-10-24] MEDS: AMLODIPINE 10 MG TABLET PO SCH (08:39)
[2018-10-24] MEDS: DABIGATRAN ETEXILATE MESYLATE 75 MG CAPSULE PO SCH (08:45)
[2018-10-24 09:02] LABS: *CREATININE,URINE 24.8 mg/dL (30-125); *URINE TOTAL PROTEIN RANDOM 6.5 mg/dL (<150/24HR)
[2018-10-24] MEDS: IV 1/2NS 1000 ML 1,000 ML IV PRN (09:51)
[2018-10-24 11:40] VITALS: BP 135/75
--- NOTE | 2018-10-24 14:30 | NUR ---
DISCHARGED TO [facility] VIA AMBULANCE STABLE REPORT GIVEN TO RANJAN CARDOZO AT [facility]
--- NOTE | 2018-10-24 15:07 | NUR ---
SEEN BY DR BROWN FOR MEDICAL FOLLOW-UP WITH DC ORDER PSYCHOLOGY PHYSICIAN AWARE
== END 2018-10-24 14:45 | DRG 57 ==
LOC: ER 18:10 → TELE3 20:21
DX: I69.354 Hemiplegia and hemiparesis following cerebral infarction affecting left non-dominant side (principal); J98.11 Atelectasis; S42.032A Displaced fracture of lateral end of left clavicle, initial encounter for closed fracture; I13.10 Hypertensive heart and chronic kidney disease without heart failure, with stage 1 through stage 4 chronic kidney disease, or unspecified chronic kidney disease; N18.3 Chronic kidney disease, stage 3 (moderate); G93.89 Other specified disorders of brain; I69.398 Other sequelae of cerebral infarction; M48.00 Spinal stenosis, site unspecified; K21.9 Gastro-esophageal reflux disease without esophagitis; E86.9 Volume depletion, unspecified; I48.2 Chronic atrial fibrillation; N27.0 Small kidney, unilateral; E86.0 Dehydration; Z79.01 Long term (current) use of anticoagulants; E03.9 Hypothyroidism, unspecified; Z79.890 Hormone replacement therapy
CPT/HCPCS: 36415; 70030-TC; 70450; 71045; 83605; 83735; 84100; 84156; 84300; 84443; 85025; 85730; 87040; 87086; 93005; A4663; G0378; J3490